=== PATIENT | male | born 1940 | race Hispanic/Latino ===

== ENCOUNTER 2017-07-02 12:24 | Inpatient (IN) | payer MEDICARE ==
--- NOTE | 2017-07-02 13:12 | RAD ---
PROCEDURE: CHEST RADIOGRAPH, 1 VIEW HISTORY: SOB COMPARISON: None available. FINDINGS: LUNGS: Clear. PLEURA: Small right pleural effusion. No definite left pleural effusion. No pneumothorax. CARDIOVASCULAR: Cardiomegaly. Pulmonary vascular congestion. . OSSEOUS STRUCTURES: No significant abnormalities. VISUALIZED UPPER ABDOMEN: Normal. OTHER FINDINGS: None. IMPRESSION: Right pleural effusion. Pulmonary vascular congestion. Cardiomegaly. Possible congestive heart failure. No evidence of pulmonary edema.
[2017-07-02] MEDS ORDERED: Verapamil 2 ML ONE ×2 (13:16→13:50)
[2017-07-02] MEDS ORDERED: Metoprolol 1 mg/ml Inj IVP ONE ×3 (13:16→18:06)
[2017-07-02 13:30] LABS: BASO % 0.5 % (0.0-2.0); EOS % 0.7 % (0.0-4.0); HEMOGLOBIN 13.6 g/dL (12.0-18.0); LYMPH # 0.7 K/uL (1.0-4.3); LYMPH % 10.2 % (20.0-40.0); MEAN CORPUSCULAR HEMOGLOBIN 30.5 pg (27.0-31.0); MEAN CORPUSCULAR HGB CONC 33.5 g/dL (33.0-37.0); MEAN PLATELET VOLUME 9.1 fL (7.2-11.7); MONO # 0.4 K/uL (0.0-0.8); MONO % 5.5 % (0.0-10.0); NEUT # 5.6 K/uL (1.8-7.0); NEUT % 83.1 % (50.0-75.0); NRBC % 0.1 % (0.0-2.0); RBC 4.44 Mil/uL (4.40-5.90); RED CELL DISTRIBUTION WIDTH 14.3 % (11.5-14.5); WHITE BLOOD COUNT 6.7 K/uL (4.8-10.8)
--- NOTE | 2017-07-02 13:51 | C.PDOC ---
History Of Present Illness 76 y/o male presents to the ED complaining of palpitations and weakness for 1 day. Patient also reports feeling short of breath and nauseous. No vomiting or abdominal pain. Time Seen by Provider: 07/02/17 12:39 Chief Complaint (Nursing): Weakness/Neurological Deficit History Per: Patient History/Exam Limitations: no limitations Onset/Duration Of Symptoms: Days Current Symptoms Are (Timing): Still Present Past Medical History Reviewed: Historical Data, Nursing Documentation, Vital Signs Vital Signs: Last Vital Signs Temp 98 F 07/02/17 12:30 Pulse 131 H 07/02/17 12:30 Resp 18 07/02/17 12:50 BP 176/126 H 07/02/17 13:23 Pulse Ox 95 07/02/17 14:26 - Medical History PMH: COPD, Sleep Apnea Other Surgeries: lap band, right hip replacement Family History: States: No Known Family Hx - Social History Hx Tobacco Use: No (former) Hx Alcohol Use: No Hx Substance Use: No - Immunization History Hx Tetanus Toxoid Vaccination: No Hx Influenza Vaccination: No Review Of Systems Except As Marked, All Systems Reviewed And Found Negative. Constitutional: Positive for: Weakness Cardiovascular: Positive for: Palpitations Respiratory: Positive for: Shortness of Breath Gastrointestinal: Positive for: Nausea Physical Exam - Physical Exam Appears: No Acute Distress Skin: Normal Color, Warm, Dry Head: Atraumatic, Normacephalic Eye(s): bilateral: Normal Inspection, PERRL, EOMI Oral Mucosa: Moist Neck: Normal, Supple Chest: Symmetrical Cardiovascular: Other (Tachycardic) Respiratory: Normal Breath Sounds, No Accessory Muscle Use, No Rales, No Rhonchi , No Wheezing, No Other (respiratory distress) Gastrointestinal/Abdominal: Soft, No Tenderness, No Distention Extremity: Normal ROM, No Calf Tenderness, Swelling (2+ bilateral pitting edema) Pulses: Left Dorsalis Pedis: Normal, Right Dorsalis Pedis: Normal Neurological/Psych: Oriented x3, Normal Speech ED Course And Treatment - Laboratory Results Result Diagrams: 07/02/17 13:23 07/02/17 13:23 ECG: Interpreted By Me, Viewed By Me ECG Rhythm: Atrial Flutter (at 131 bpm, normal intervals, nonspecific ST/T wave changes) O2 Sat by Pulse Oximetry: 95 (NC) Pulse Ox Interpretation: Normal - Other Rad CXR X-Ray: Read By Radiologist Interpretation: IMPRESSION: Right pleural effusion. Pulmonary vascular congestion. Cardiomegaly. Possible congestive heart failure. No evidence of pulmonary edema. Medical Decision Making Medical Decision Making: Impression: Atrial Flutter Initial Plan: --EKG --Pro-BNP --CMP --Troponin I --TSH --CBC --Accucheck --UA --Chest x-ray --Cardizem 20 mg IVP --Aspirin 81 mg PO --Lopressor 5 mg IVP --Verapimil 2.5 mg IVP Patient given medications with rate control. Labs reviewed: (+) troponin 0.135, BNP 8060 Case d/w Dr. Ogden (car rental agent) who will see pt on consult. Case d/w Dr. Valentin, accepts patient for admission Disposition Discussed With : Terry Valentin Counseled Patient/Family Regarding: Studies Performed, Diagnosis - Disposition Referrals: Oscar Ogden MD [Staff Provider] - Disposition Time: 13:51 Condition: FAIR Forms: [employer] ([place]) - Clinical Impression Clinical Impression: Atrial flutter - Scribe Statement The provider has reviewed the documentation as recorded by the Scribe (Kendal Guardado) Provider Attestation: All medical record entries made by the Scribe were at my direction and personally dictated by me. I have reviewed the chart and agree that the record accurately reflects my personal performance of the history, physical exam, medical decision making, and the department course for this patient. I have also personally directed, reviewed, and agree with the discharge instructions and disposition.
--- NOTE | 2017-07-02 13:55 | CP.PCM.CON ---
History of Present Illness - History of Present Illness History of Present Illness: Dr. Ogden has asked me to see this patient with atrial flutter Past Patient History - Past Social History Smoking Status: Former Smoker - CARDIAC Hx Angina: Yes - PULMONARY Hx Chronic Obstructive Pulmonary Disease (COPD): Yes Hx Sleep Apnea: Yes - GASTROINTESTINAL Other/Comment: lap band - PSYCHIATRIC Hx Substance Use: No - SURGICAL HISTORY Other/Comment: right leg hip replacement - ANESTHESIA Hx Anesthesia: Yes Hx Anesthesia Reactions: No Hx Malignant Hyperthermia: No Meds Allergies/Adverse Reactions: Allergies Allergy/AdvReac Type Severity Reaction Status Date / Time No Known Allergies Allergy Unverified 07/02/17 12:49 Results - Vital Signs Recent Vital Signs: Last Vital Signs Temp 98 F 07/02/17 12:30 Pulse 131 H 07/02/17 12:30 Resp 18 07/02/17 12:50 BP 176/126 H 07/02/17 13:23 Pulse Ox 95 07/02/17 13:51 - Labs Result Diagrams: 07/02/17 13:23 07/02/17 13:23 Labs: Laboratory Results - last 24 hr 07/02/17 07/02/17 12:51 13:23 WBC 6.7 RBC 4.44 Hgb 13.6 Hct 40.4 MCV 91.0 MCH 30.5 MCHC 33.5 RDW 14.3 Plt Count 211 MPV 9.1 Neut % (Auto) 83.1 H Lymph % (Auto) 10.2 L [place] % (Auto) 5.5 Eos % (Auto) 0.7 Baso % (Auto) 0.5 Neut # (Auto) 5.6 Lymph # (Auto) 0.7 L [place] # (Auto) 0.4 Eos # (Auto) 0.0 Baso # (Auto) 0.0 POC Glucose (mg/dL) 115 H Assessment & Plan - Assessment and Plan (Free Text) Assessment: New atrial flutter. May have been ongoing for the past 2-3 months. Much worse breathing past week. Found to be in rapid atrial flutter with volume overload and LE edema. Start eliquis 5 mg bid Start cardizem 30 mg qiq. Hopeful dc over weekend if rate controlled. Outpatient SUKHWINDER/CV after he has been anticogaulated Patient prefers to avoid invasive procedure at present.
[2017-07-02 13:56] LABS: ALB/GLOB RATIO 1.3 (1.0-2.1); ALBUMIN 3.6 g/dL (3.5-5.0); ALT/SGPT 23 U/L (21-72); AST/SGOT 28 U/L (17-59); BLOOD UREA NITROGEN 25 mg/dL (9-20); CALCIUM 8.5 mg/dl (8.6-10.4); GFR AFRICAN-AMERICAN > 60; GFR NON-AFRICAN AMERICAN 54
[2017-07-02 14:03] LABS: B-TYPE NATRIURETIC PEPTIDE 8060 pg/mL (0-900)
[2017-07-02] MEDS ORDERED: Potassium Chloride 20 mEq/15 ml LIQ UD PO STA (16:04)
[2017-07-02] MEDS ORDERED: Potassium Chloride 20 mEq/15 ml LIQ UD PO ONE (17:57)
[2017-07-02 20:56] LABS: CK-MB 2.53 ng/mL (0.0-3.38); TROPONIN I 0.173 ng/mL (0.00-0.120)
[2017-07-03 02:26] LABS: CK-MB 2.55 ng/mL (0.0-3.38); TROPONIN I 0.174 ng/mL (0.00-0.120)
--- NOTE | 2017-07-03 08:57 | CP.PCM.CON ---
History of Present Illness - History of Present Illness History of Present Illness: Patient seen examined. full consult to follow. Patient has a history of HTN who presents with palpitations. Patient was found to be in atrial fibrillation with rapid ventricular response. Patient was seen by Dr Nova for EP consultation. Plan: echocardiogram increase cardizem for rate control Eliquis If rate can be controlled can d/c home and will schedule outpatient SUKHWINDER/ cardioversion with possible ablation. Dishcarge will depend on patinet's symptoms and hear rate control. Past Patient History - Past Social History Smoking Status: Former Smoker - CARDIAC Hx Angina: Yes - PULMONARY Hx Chronic Obstructive Pulmonary Disease (COPD): Yes Hx Sleep Apnea: Yes - GASTROINTESTINAL Other/Comment: lap band - PSYCHIATRIC Hx Substance Use: No - SURGICAL HISTORY Other/Comment: right leg hip replacement - ANESTHESIA Hx Anesthesia: Yes Hx Anesthesia Reactions: No Hx Malignant Hyperthermia: No Meds Allergies/Adverse Reactions: Allergies Allergy/AdvReac Type Severity Reaction Status Date / Time No Known Allergies Allergy Unverified 07/02/17 12:49 - Medications Medications: Current Medications Apixaban (Eliquis) 5 mg PO BID [facility] Aspirin (Ecotrin) 81 mg PO DAILY [facility] Diltiazem HCl (Cardizem) 60 mg PO QID [facility] Enoxaparin Sodium (Lovenox) 40 mg SC DAILY [facility] Metoprolol Succinate (Toprol Xl) 50 mg PO DAILY [facility] Rosuvastatin Calcium (Crestor) 10 mg PO HS [facility] Last Admin: 07/02/17 22:29 Dose: 10 mg Results - Vital Signs Recent Vital Signs: Last Vital Signs Temp 97.3 F L 07/03/17 07:05 Pulse 127 H 07/03/17 07:05 Resp 18 07/03/17 07:05 BP 147/88 07/03/17 07:05 Pulse Ox 96 07/03/17 07:05 - Labs Result Diagrams: 07/02/17 13:23 07/02/17 13:23 Labs: Laboratory Results - last 24 hr 07/02/17 07/02/17 07/02/17 12:51 13:23 13:23 WBC 6.7 RBC 4.44 Hgb 13.6 Hct 40.4 MCV 91.0 MCH 30.5 MCHC 33.5 RDW 14.3 Plt Count 211 MPV 9.1 Neut % (Auto) 83.1 H Lymph % (Auto) 10.2 L [place] % (Auto) 5.5 Eos % (Auto) 0.7 Baso % (Auto) 0.5 Neut # (Auto) 5.6 Lymph # (Auto) 0.7 L [place] # (Auto) 0.4 Eos # (Auto) 0.0 Baso # (Auto) 0.0 Sodium 145 Potassium 3.5 L Chloride 105 Carbon Dioxide 26 Anion Gap 18 BUN 25 H Creatinine 1.3 Est GFR ( Amer) > 60 Est GFR (Non-Af Amer) 54 POC Glucose (mg/dL) 115 H Random Glucose 124 H Calcium 8.5 L Total Bilirubin 1.4 H AST 28 ALT 23 Alkaline Phosphatase 52 Total Creatine Kinase CK-MB (Mass) Troponin I 0.1350 H* NT-Pro-B Natriuret Pep 8060 H Total Protein 6.5 Albumin 3.6 Globulin 2.9 Albumin/Globulin Ratio 1.3 TSH 3rd Generation 2.29 07/02/17 07/03/17 20:00 01:36 WBC RBC Hgb Hct MCV MCH MCHC RDW Plt Count MPV Neut % (Auto) Lymph % (Auto) [place] % (Auto) Eos % (Auto) Baso % (Auto) Neut # (Auto) Lymph # (Auto) [place] # (Auto) Eos # (Auto) Baso # (Auto) Sodium Potassium Chloride Carbon Dioxide Anion Gap BUN Creatinine Est GFR ( Amer) Est GFR (Non-Af Amer) POC Glucose (mg/dL) Random Glucose Calcium Total Bilirubin AST ALT Alkaline Phosphatase Total Creatine Kinase 93 106 CK-MB (Mass) 2.53 2.55 Troponin I 0.1730 H* 0.1740 H* NT-Pro-B Natriuret Pep Total Protein Albumin Globulin Albumin/Globulin Ratio TSH 3rd Generation
[2017-07-03] MEDS: Metoprolol Succinate 50 mg XL Tab PO SCH (09:17)
--- NOTE | 2017-07-03 09:34 | CP.PCM.HP ---
History of Present Illness - History of Present Illness History of Present Illness: CC: weakness, shortness of breath HPI: Pt is a 76 year old male present with severe weakness, shortness of breath since wednesday,Patient has a history of HTN, gastric bypass surgery, who presents with palpitations. Patient was found to be in atrial fibrillation with rapid ventricular response. Patient was seen by Dr Nova for EP consultation. Present on Admission - Present on Admission Any Indicators Present on Admission: Yes Review of Systems - Review of Systems Systems not reviewed;Unavailable: Acuity of Condition - Constitutional Constitutional: Fatigue, Lethargy, Malaise - EENT Eyes: absent: As Per HPI, Blind Spots, Blurred Vision, Change in Vision, Decreased Night Vision, Diplopia, Discharge, Dry Eye, Exophthalmos, Floaters, Irritation, Itchy Eyes, Loss of Peripheral Vision, Pain, Photophobia, Requires Corrective Lenses, Sees Flashes, Spots in Vision, Tunnel Vision, Other Visual Disturbances, Loss of Vision, Other Ears: absent: As Per HPI, Decreased Hearing, Ear Discharge, Ear Pain, Tinnitus, Abnormal Hearing, Disequilibrium, Dizziness, Other Nose/Mouth/Throat: absent: As Per HPI, Epistaxis, Nasal Congestion, Nasal Discharge, Nasal Obstruction, Nasal Trauma, Nose Pain, Post Nasal Drip, Sinus Pain, Sinus Pressure, Bleeding Gums, Change in Voice, Dental Pain, Dry Mouth, Dysphagia, Halitosis, Hoarsness, Lip Swelling, Mouth Lesions, Mouth Pain, Odynophagia, Sore Throat, Throat Swelling, Tongue Swelling, Facial Pain, Neck Pain, Neck Mass, Other - Cardiovascular Cardiovascular: Chest Pain, Leg Edema - Respiratory Respiratory: Dyspnea. absent: As Per HPI, Cough, Hemoptysis, Dyspnea on Exertion, Wheezing, Snoring, Stridor, Pain on Inspiration, Chest Congestion, Excessive Mucous Production, Change in Mucous Color, Pain with Coughing, Other - Gastrointestinal Gastrointestinal: absent: As Per HPI, Abdominal Pain, Belching, Bloating, Change in Bowel Habits, Change in Stool Character, Coffee Ground Emesis, Constipation, Cramping, Diarrhea, Dyspepsia, Dysphagia, Early Satiety, Excessive Flatus, Fecal Incontinence, Heartburn, Hematemesis, Hematochezia, Loose Stools, Melena, Nausea, Odynophagia, Temesmus, Vomiting, Other - Genitourinary Genitourinary: absent: As Per HPI, Change in Urinary Stream, Difficulty Urinating, Dysuria, Flank Pain, Hematuria, Pyuria, Nocturia, Urinary Incontinence, Urinary Frequency, Urinary Hesitance, Urinary Urgency, Voiding Freq/Small Amts, Freq UTI, Hx Renal/Bladder Calculi, Hx /Renal Surgery, Bladder Distension, Other Past Patient History - Past Social History Smoking Status: Former Smoker - CARDIAC Hx Angina: Yes - PULMONARY Hx Chronic Obstructive Pulmonary Disease (COPD): Yes Hx Sleep Apnea: Yes - GASTROINTESTINAL Other/Comment: lap band - PSYCHIATRIC Hx Substance Use: No - SURGICAL HISTORY Other/Comment: right leg hip replacement - ANESTHESIA Hx Anesthesia: Yes Hx Anesthesia Reactions: No Hx Malignant Hyperthermia: No Meds Allergies/Adverse Reactions: Allergies Allergy/AdvReac Type Severity Reaction Status Date / Time No Known Allergies Allergy Unverified 07/02/17 12:49 Physical Exam - Constitutional Appears: No Acute Distress - Head Exam Head Exam: ATRAUMATIC, NORMAL INSPECTION, NORMOCEPHALIC - Eye Exam Eye Exam: EOMI, Normal appearance, PERRL Pupil Exam: NORMAL ACCOMODATION, PERRL - ENT Exam ENT Exam: Mucous Membranes Moist, Normal Exam - Respiratory Exam Respiratory Exam: Clear to Auscultation Bilateral, NORMAL BREATHING PATTERN - Cardiovascular Exam Cardiovascular Exam: REGULAR RHYTHM - GI/Abdominal Exam GI & Abdominal Exam: Normal Bowel Sounds, Soft. absent: Tenderness - Extremities Exam Extremities exam: Positive for: pedal edema - Back Exam Back exam: NORMAL INSPECTION Results - Vital Signs Recent Vital Signs: Last Vital Signs Temp 97.3 F L 07/03/17 07:05 Pulse 127 H 07/03/17 07:05 Resp 18 07/03/17 07:05 BP 147/88 07/03/17 07:05 Pulse Ox 96 07/03/17 07:05 - Labs Result Diagrams: 07/02/17 13:23 07/02/17 13:23 Labs: Laboratory Results - last 24 hr 07/02/17 07/02/17 07/02/17 12:51 13:23 13:23 WBC 6.7 RBC 4.44 Hgb 13.6 Hct 40.4 MCV 91.0 MCH 30.5 MCHC 33.5 RDW 14.3 Plt Count 211 MPV 9.1 Neut % (Auto) 83.1 H Lymph % (Auto) 10.2 L [place] % (Auto) 5.5 Eos % (Auto) 0.7 Baso % (Auto) 0.5 Neut # (Auto) 5.6 Lymph # (Auto) 0.7 L [place] # (Auto) 0.4 Eos # (Auto) 0.0 Baso # (Auto) 0.0 Sodium 145 Potassium 3.5 L Chloride 105 Carbon Dioxide 26 Anion Gap 18 BUN 25 H Creatinine 1.3 Est GFR ( Amer) > 60 Est GFR (Non-Af Amer) 54 POC Glucose (mg/dL) 115 H Random Glucose 124 H Calcium 8.5 L Total Bilirubin 1.4 H AST 28 ALT 23 Alkaline Phosphatase 52 Total Creatine Kinase CK-MB (Mass) Troponin I 0.1350 H* NT-Pro-B Natriuret Pep 8060 H Total Protein 6.5 Albumin 3.6 Globulin 2.9 Albumin/Globulin Ratio 1.3 TSH 3rd Generation 2.29 07/02/17 07/03/17 20:00 01:36 WBC RBC Hgb Hct MCV MCH MCHC RDW Plt Count MPV Neut % (Auto) Lymph % (Auto) [place] % (Auto) Eos % (Auto) Baso % (Auto) Neut # (Auto) Lymph # (Auto) [place] # (Auto) Eos # (Auto) Baso # (Auto) Sodium Potassium Chloride Carbon Dioxide Anion Gap BUN Creatinine Est GFR ( Amer) Est GFR (Non-Af Amer) POC Glucose (mg/dL) Random Glucose Calcium Total Bilirubin AST ALT Alkaline Phosphatase Total Creatine Kinase 93 106 CK-MB (Mass) 2.53 2.55 Troponin I 0.1730 H* 0.1740 H* NT-Pro-B Natriuret Pep Total Protein Albumin Globulin Albumin/Globulin Ratio TSH 3rd Generation Assessment & Plan (1) Chest pain Assessment and Plan: Plan: echocardiogram increase cardizem for rate control Eliquis If rate can be controlled can d/c home and will schedule outpatient SUKHWINDER/ cardioversion with possible ablation. Dishcarge will depend on patinet's symptoms and hear rate control. Status: Acute (2) Venous insufficiency of both lower extremities Status: Acute (3) Atrial flutter Status: Acute
--- NOTE | 2017-07-03 09:49 | CP.PCM.PN ---
Objective - Vital Signs/Intake and Output Vital Signs (last 24 hours): Temp Pulse Resp BP Pulse Ox 97.3 F L 127 H 18 147/88 96 07/03/17 07:05 07/03/17 07:05 07/03/17 07:05 07/03/17 07:05 07/03/17 07:05 Intake and Output: 07/03/17 07/03/17 06:59 18:59 Intake Total 358 Balance 358 - Medications Medications: Current Medications Apixaban (Eliquis) 5 mg PO BID [facility] Last Admin: 07/03/17 09:40 Dose: 5 mg Aspirin (Ecotrin) 81 mg PO DAILY [facility] Last Admin: 07/03/17 09:17 Dose: 81 mg Diltiazem HCl (Cardizem) 60 mg PO QID [facility] Last Admin: 07/03/17 09:17 Dose: 60 mg Metoprolol Succinate (Toprol Xl) 50 mg PO DAILY [facility] Last Admin: 07/03/17 09:17 Dose: 50 mg Rosuvastatin Calcium (Crestor) 10 mg PO [facility] Last Admin: 07/02/17 22:29 Dose: 10 mg - Labs Labs: 07/02/17 13:23 07/02/17 13:23 Assessment and Plan (1) Chest pain Status: Acute (2) Venous insufficiency of both lower extremities Status: Acute (3) Atrial flutter Status: Acute
[2017-07-03] MEDS ORDERED: Metoprolol Succinate 50 mg XL Tab PO SCH (10:00)
[2017-07-03] MEDS ORDERED: Enoxaparin 40 mg Syringe SC SCH (10:00)
[2017-07-03] MEDS ORDERED: Home Med 1 UNIT (Simvastatin [Simvastatin] 20 MG) PO SCH (10:00)
[2017-07-03 17:11] LABS: CALCIUM 8.3 mg/dl (8.6-10.4)
--- NOTE | 2017-07-03 19:52 | CARD ---
APPROVED REPORT EXAM: Two-dimensional and M-mode echocardiogram with Doppler and color Doppler. Other Information Quality : Technically LimitedRhythm : INDICATION Atrial Fibrillation Chest Pain RISK FACTORS Obesity 2D DIMENSIONS IVSd1.3 (0.7-1.1cm)LVDd5.7 (3.9-5.9cm) LVOT Diameter2.1 (1.8-2.4cm)PWd1.4 (0.7-1.1cm) LVDs4.5 (2.5-4.0cm)FS (%) 21.0 % LVEF (%)42.0 (>50%) Aortic Valve AoV Peak Psevxxje543.6cm/sAoV VTI30.9cmAO Peak GR.17mmHg LVOT Peak Odzixymy83.0cm/sLVOT VTI17.00cmAO Mean GR.9mmHg FILOMENA (VMAX)1.75qb9UKV (VTI)1.82cm2 Mitral Valve MV E Vaznnijk854.2cm/sMV A Yhvonuym98.0cm/sE/A ratio3.8 TDI E/Lateral E'0.0E/Medial E'0.0 Tricuspid Valve TR Peak Tzlstsrl821qa/sTR Peak Gr.40owJpMJDF98wiJp LEFT VENTRICLE The left ventricle is normal size. There is normal left ventricular wall thickness. The systolic function is mildly to moderately impaired. The left ventricular diastolic function is normal. RIGHT VENTRICLE The right ventricle is normal size. ATRIA The left atrium is moderately dilated. The right atrium size is normal. AORTIC VALVE There is mild aortic regurgitation. There is mild valvular aortic stenosis. MITRAL VALVE Mitral regurgitation is mild. TRICUSPID VALVE There is moderate tricuspid regurgitation. <Conclusion> Technically difficult study. Mild to moderate LV systolic dysfunction. Moderately dilated LA. Mild . Mild AR. Mild MR. Moderate TR.
--- NOTE | 2017-07-03 20:26 | CARD ---
APPROVED REPORT EKG Measurement Heart [id number] <Conclusion> Atrial flutter with 2:1 AV conduction Voltage criteria for left ventricular hypertrophy Nonspecific ST and T wave abnormality Abnormal ECG
[2017-07-04] MEDS: Metoprolol Succinate 50 mg XL Tab PO SCH (09:13)
--- NOTE | 2017-07-04 10:10 | CP.PCM.PN ---
Subjective - Date & Time of Evaluation Date of Evaluation: 07/04/17 Time of Evaluation: 09:40 - Subjective Subjective: patient has less dyspnea. Objective - Vital Signs/Intake and Output Vital Signs (last 24 hours): Temp Pulse Resp BP Pulse Ox 97.9 F 108 H 20 123/72 98 07/04/17 09:26 07/04/17 09:26 07/04/17 09:26 07/04/17 09:26 07/04/17 09:26 Intake and Output: 07/04/17 07/04/17 06:59 18:59 Intake Total 250 Balance 250 - Medications Medications: Current Medications Apixaban (Eliquis) 5 mg PO BID [facility] Last Admin: 07/04/17 09:14 Dose: 5 mg Aspirin (Ecotrin) 81 mg PO DAILY [facility] Last Admin: 07/04/17 09:14 Dose: 81 mg Diltiazem HCl (Cardizem) 60 mg PO QID [facility] Last Admin: 07/04/17 09:14 Dose: 60 mg Hydrochlorothiazide (Microzide) 12.5 mg PO DAILY [facility] Last Admin: 07/04/17 09:13 Dose: 12.5 mg Metoprolol Succinate (Toprol Xl) 50 mg PO DAILY [facility] Last Admin: 07/04/17 09:13 Dose: 50 mg Rosuvastatin Calcium (Crestor) 10 mg PO HS [facility] Last Admin: 07/03/17 21:25 Dose: 10 mg - Labs Labs: 07/02/17 13:23 07/03/17 16:52 - Constitutional Appears: Non-toxic - Head Exam Head Exam: NORMAL INSPECTION - Eye Exam Eye Exam: Normal appearance - ENT Exam ENT Exam: Mucous Membranes Moist - Neck Exam Neck Exam: Full ROM - Respiratory Exam Respiratory Exam: Decreased Breath Sounds - Cardiovascular Exam Cardiovascular Exam: Irregular Rhythm - GI/Abdominal Exam GI & Abdominal Exam: Normal Bowel Sounds - Rectal Exam Rectal Exam: Deferred - Extremities Exam Extremities Exam: absent: Pedal Edema - Back Exam Back Exam: NORMAL INSPECTION - Neurological Exam Neurological Exam: Alert - Psychiatric Exam Psychiatric exam: Normal Affect - Skin Skin Exam: Normal Color Assessment and Plan (1) Atrial fibrillation Assessment & Plan: I reviewed the echocardiogram. There is moderate LV dysfunction, with mild hypokinesis of the anterior wall. The LA appears dilated. The patient may have underlying CAD. Recommend nuclear perfusion stress test. Status: Acute
--- NOTE | 2017-07-05 00:58 | CP.PCM.PN ---
Subjective - Date & Time of Evaluation Date of Evaluation: 07/04/17 Time of Evaluation: 20:00 - Subjective Subjective: Pt seen and examined at bedside Objective - Vital Signs/Intake and Output Vital Signs (last 24 hours): Temp Pulse Resp BP Pulse Ox 97.1 F L 64 20 127/85 94 L 07/04/17 15:28 07/05/17 00:00 07/04/17 15:28 07/04/17 15:28 07/04/17 15:28 Intake and Output: 07/04/17 07/05/17 18:59 06:59 Intake Total 360 Balance 360 - Medications Medications: Current Medications Apixaban (Eliquis) 5 mg PO BID [facility] Last Admin: 07/04/17 17:38 Dose: 5 mg Aspirin (Ecotrin) 81 mg PO DAILY [facility] Last Admin: 07/04/17 09:14 Dose: 81 mg Diltiazem HCl (Cardizem) 60 mg PO QID [facility] Last Admin: 07/04/17 22:02 Dose: 60 mg Hydrochlorothiazide (Microzide) 12.5 mg PO DAILY [facility] Last Admin: 07/04/17 09:13 Dose: 12.5 mg Metoprolol Succinate (Toprol Xl) 50 mg PO DAILY [facility] Last Admin: 07/04/17 09:13 Dose: 50 mg Rosuvastatin Calcium (Crestor) 10 mg PO HS [facility] Last Admin: 07/04/17 22:02 Dose: 10 mg - Labs Labs: 07/02/17 13:23 07/03/17 16:52 Assessment and Plan (1) Chest pain Status: Acute (2) Venous insufficiency of both lower extremities Status: Acute (3) Atrial flutter Status: Acute
--- NOTE | 2017-07-05 08:17 | CP.PCM.PN ---
Subjective - Date & Time of Evaluation Date of Evaluation: 07/05/17 Time of Evaluation: 08:00 - Subjective Subjective: patient is s/p stress test. await nuclear images Objective - Vital Signs/Intake and Output Vital Signs (last 24 hours): Temp Pulse Resp BP Pulse Ox 97.2 F L 64 20 118/77 95 07/04/17 23:50 07/05/17 00:00 07/04/17 23:50 07/04/17 23:50 07/04/17 23:50 Intake and Output: 07/05/17 07/05/17 06:59 18:59 Intake Total 0 Balance 0 - Medications Medications: Current Medications Apixaban (Eliquis) 5 mg PO BID [facility] Last Admin: 07/04/17 17:38 Dose: 5 mg Aspirin (Ecotrin) 81 mg PO DAILY [facility] Last Admin: 07/04/17 09:14 Dose: 81 mg Diltiazem HCl (Cardizem) 60 mg PO QID [facility] Last Admin: 07/04/17 22:02 Dose: 60 mg Hydrochlorothiazide (Microzide) 12.5 mg PO DAILY [facility] Last Admin: 07/04/17 09:13 Dose: 12.5 mg Metoprolol Succinate (Toprol Xl) 50 mg PO DAILY [facility] Last Admin: 07/04/17 09:13 Dose: 50 mg Rosuvastatin Calcium (Crestor) 10 mg PO HS [facility] Last Admin: 07/04/17 22:02 Dose: 10 mg - Labs Labs: 07/02/17 13:23 07/03/17 16:52 Assessment and Plan (1) Atrial fibrillation Status: Acute
[2017-07-05] MEDS: Metoprolol Succinate 50 mg XL Tab PO SCH (09:59)
[2017-07-05 16:13] VITALS: RESP 20
[2017-07-05 18:22] LABS: URINE BACTERIA RARE (<OCC); URINE BILIRUBIN NEGATIVE (NEGATIVE); URINE BLOOD 1+ (NEGATIVE); URINE CLARITY Clear (Clear); URINE COLOR Yellow (YELLOW); URINE GLUCOSE (UA) NORMAL (Normal); URINE LEUKOCYTE ESTERASE NEG Leu/uL (Negative); URINE PROTEIN NEGATIVE (NEGATIVE)
--- NOTE | 2017-07-05 23:30 | CP.PCM.PN ---
Subjective - Date & Time of Evaluation Date of Evaluation: 07/05/17 Time of Evaluation: 20:00 - Subjective Subjective: Pt seen and examined at bedside Objective - Vital Signs/Intake and Output Vital Signs (last 24 hours): Temp Pulse Resp BP Pulse Ox 98.3 F 75 20 140/82 95 07/05/17 15:00 07/05/17 16:05 07/05/17 15:00 07/05/17 15:00 07/05/17 15:00 - Medications Medications: Current Medications Apixaban (Eliquis) 5 mg PO BID [facility] Last Admin: 07/05/17 17:40 Dose: 5 mg Aspirin (Ecotrin) 81 mg PO DAILY [facility] Last Admin: 07/05/17 09:59 Dose: 81 mg Diltiazem HCl (Cardizem) 60 mg PO QID [facility] Last Admin: 07/05/17 21:21 Dose: 60 mg Hydrochlorothiazide (Microzide) 12.5 mg PO DAILY [facility] Last Admin: 07/05/17 09:59 Dose: 12.5 mg Metoprolol Succinate (Toprol Xl) 50 mg PO DAILY [facility] Last Admin: 07/05/17 09:59 Dose: 50 mg Rosuvastatin Calcium (Crestor) 10 mg PO HS [facility] Last Admin: 07/05/17 21:21 Dose: 10 mg - Labs Labs: 07/02/17 13:23 07/03/17 16:52 Assessment and Plan (1) Chest pain Status: Acute (2) Venous insufficiency of both lower extremities Status: Acute (3) Atrial flutter Status: Acute
[2017-07-06] MEDS: Metoprolol Succinate 50 mg XL Tab PO SCH (09:41)
--- NOTE | 2017-07-06 09:54 | CP.PCM.PN ---
Subjective - Date & Time of Evaluation Date of Evaluation: 07/06/17 Time of Evaluation: 09:50 - Subjective Subjective: patient has no chest pain. Objective - Vital Signs/Intake and Output Vital Signs (last 24 hours): Temp Pulse Resp BP Pulse Ox 97.6 F 86 20 157/90 H 98 07/06/17 08:20 07/06/17 08:20 07/06/17 08:20 07/06/17 08:20 07/06/17 08:20 - Medications Medications: Current Medications Apixaban (Eliquis) 5 mg PO BID [facility] Last Admin: 07/06/17 09:40 Dose: 5 mg Aspirin (Ecotrin) 81 mg PO DAILY [facility] Last Admin: 07/06/17 09:41 Dose: 81 mg Diltiazem HCl (Cardizem) 60 mg PO QID [facility] Last Admin: 07/06/17 09:41 Dose: 60 mg Hydrochlorothiazide (Microzide) 12.5 mg PO DAILY [facility] Last Admin: 07/06/17 09:41 Dose: 12.5 mg Metoprolol Succinate (Toprol Xl) 50 mg PO DAILY [facility] Last Admin: 07/06/17 09:41 Dose: 50 mg Rosuvastatin Calcium (Crestor) 10 mg PO HS [facility] Last Admin: 07/05/17 21:21 Dose: 10 mg - Labs Labs: 07/02/17 13:23 07/03/17 16:52 - Constitutional Appears: Non-toxic - Head Exam Head Exam: NORMAL INSPECTION - Eye Exam Eye Exam: Normal appearance - ENT Exam ENT Exam: Mucous Membranes Moist - Neck Exam Neck Exam: Full ROM - Respiratory Exam Respiratory Exam: NORMAL BREATHING PATTERN - Cardiovascular Exam Cardiovascular Exam: Irregular Rhythm - GI/Abdominal Exam GI & Abdominal Exam: Normal Bowel Sounds - Extremities Exam Extremities Exam: absent: Pedal Edema - Back Exam Back Exam: NORMAL INSPECTION - Neurological Exam Neurological Exam: Alert - Psychiatric Exam Psychiatric exam: Normal Affect - Skin Skin Exam: Normal Color Assessment and Plan (1) Atrial fibrillation Assessment & Plan: rate controlled. stress test reveals no ischemia. recommend continued oral therapy. can d/c home and will schedule outpatient [facility]/cardioversion Status: Acute
--- NOTE | 2017-07-06 16:37 | CP.PCM.PN ---
Subjective - Date & Time of Evaluation Date of Evaluation: 07/06/17 Time of Evaluation: 17:00 - Subjective Subjective: Pt seen and examined, afebrile, more alert, malcom any chest pain Objective - Vital Signs/Intake and Output Vital Signs (last 24 hours): Temp Pulse Resp BP Pulse Ox 98 F 65 20 123/66 98 07/06/17 15:57 07/06/17 15:57 07/06/17 15:57 07/06/17 15:57 07/06/17 15:57 Intake and Output: 07/06/17 07/06/17 06:59 18:59 Intake Total 600 Balance 600 - Medications Medications: Current Medications Apixaban (Eliquis) 5 mg PO BID [facility] Last Admin: 07/06/17 09:40 Dose: 5 mg Aspirin (Ecotrin) 81 mg PO DAILY [facility] Last Admin: 07/06/17 09:41 Dose: 81 mg Diltiazem HCl (Cardizem) 60 mg PO QID [facility] Last Admin: 07/06/17 13:17 Dose: 60 mg Hydrochlorothiazide (Microzide) 12.5 mg PO DAILY [facility] Last Admin: 07/06/17 09:41 Dose: 12.5 mg Metoprolol Succinate (Toprol Xl) 50 mg PO DAILY [facility] Last Admin: 07/06/17 09:41 Dose: 50 mg Rosuvastatin Calcium (Crestor) 10 mg PO HS [facility] Last Admin: 07/05/17 21:21 Dose: 10 mg - Labs Labs: 07/02/17 13:23 07/03/17 16:52 Assessment and Plan (1) Chest pain Status: Acute (2) Venous insufficiency of both lower extremities Status: Acute (3) Atrial flutter Status: Acute
[2017-07-07 00:39] VITALS: TEMP 97.5
[2017-07-07 07:55] VITALS: O2SAT 98
[2017-07-07] MEDS: Metoprolol Succinate 50 mg XL Tab PO SCH (09:48)
--- NOTE | 2017-07-07 11:44 | CP.PCM.PN ---
Subjective - Date & Time of Evaluation Date of Evaluation: 07/07/17 Time of Evaluation: 11:00 - Subjective Subjective: Patient seen today, denies any chest pain, sob, dizziness, palpitations HR controlled- Objective - Vital Signs/Intake and Output Vital Signs (last 24 hours): Temp Pulse Resp BP Pulse Ox 97.5 F L 88 20 157/94 H 98 07/07/17 07:00 07/07/17 08:00 07/07/17 07:00 07/07/17 07:00 07/07/17 07:00 Intake and Output: 07/07/17 07/07/17 06:59 18:59 Intake Total 200 Balance 200 - Medications Medications: Current Medications Apixaban (Eliquis) 5 mg PO BID [facility] Last Admin: 07/07/17 09:48 Dose: 5 mg Aspirin (Ecotrin) 81 mg PO DAILY [facility] Last Admin: 07/07/17 09:48 Dose: 81 mg Diltiazem HCl (Cardizem) 60 mg PO QID [facility] Last Admin: 07/07/17 09:48 Dose: 60 mg Hydrochlorothiazide (Microzide) 12.5 mg PO DAILY [facility] Last Admin: 07/07/17 09:48 Dose: 12.5 mg Metoprolol Succinate (Toprol Xl) 50 mg PO DAILY [facility] Last Admin: 07/07/17 09:48 Dose: 50 mg Rosuvastatin Calcium (Crestor) 10 mg PO HS [facility] Last Admin: 07/06/17 21:18 Dose: 10 mg - Labs Labs: 07/02/17 13:23 07/03/17 16:52 Assessment and Plan - Assessment and Plan (Free Text) Assessment: A/P 76 yr old male with hx COPD, Sleep Apnea admitted with palpitations and weakness / atrial flutter s/p stress test - reveals no ischemia. D/W Dr. Lopes recommends to continue oral therapy, can be discharged home from cardiology standpoint f/u with Dr. Lopes office D/w Barbie, stable for discharge home today and f/u with office in 1 week Discharge plan discussed with patient who understands and agrees with plan
[2017-07-07 13:04] VITALS: BP 110/71; PULSE 88
--- NOTE | 2017-07-07 22:33 | CP.PCM.DIS ---
Provider - Provider Date of Admission: 07/03/17 15:55 Attending physician: Terry Valentin MD Time Spent in preparation of Discharge (in minutes): 34 Diagnosis - Discharge Diagnosis (1) Chest pain Status: Acute (2) Venous insufficiency of both lower extremities Status: Acute (3) Atrial flutter Status: Acute Hospital Course - Lab Results Lab Results: Most Recent Lab Values WBC 6.7 K/uL (4.8-10.8) 07/02/17 13:23 RBC 4.44 Mil/uL (4.40-5.90) 07/02/17 13:23 Hgb 13.6 g/dL (12.0-18.0) 07/02/17 13:23 Hct 40.4 % (35.0-51.0) 07/02/17 13:23 MCV 91.0 fL (80.0-94.0) 07/02/17 13:23 MCH 30.5 pg (27.0-31.0) 07/02/17 13:23 MCHC 33.5 g/dL (33.0-37.0) 07/02/17 13:23 RDW 14.3 % (11.5-14.5) 07/02/17 13:23 Plt Count 211 K/uL (130-400) 07/02/17 13:23 MPV 9.1 fL (7.2-11.7) 07/02/17 13:23 Neut % (Auto) 83.1 % (50.0-75.0) H 07/02/17 13:23 Lymph % (Auto) 10.2 % (20.0-40.0) L 07/02/17 13:23 [place] % (Auto) 5.5 % (0.0-10.0) 07/02/17 13:23 Eos % (Auto) 0.7 % (0.0-4.0) 07/02/17 13:23 Baso % (Auto) 0.5 % (0.0-2.0) 07/02/17 13:23 Neut # (Auto) 5.6 K/uL (1.8-7.0) 07/02/17 13:23 Lymph # (Auto) 0.7 K/uL (1.0-4.3) L 07/02/17 13:23 [place] # (Auto) 0.4 K/uL (0.0-0.8) 07/02/17 13:23 Eos # (Auto) 0.0 K/uL (0.0-0.7) 07/02/17 13:23 Baso # (Auto) 0.0 K/uL (0.0-0.2) 07/02/17 13:23 Sodium 144 mmol/L (132-148) 07/03/17 16:52 Potassium 4.5 mmol/L (3.6-5.2) 07/03/17 16:52 Chloride 104 mmol/L (98-107) 07/03/17 16:52 Carbon Dioxide 27 mmol/L (22-30) 07/03/17 16:52 Anion Gap 18 (10-20) 07/03/17 16:52 BUN 36 mg/dL (9-20) H 07/03/17 16:52 Creatinine 1.5 mg/dL (0.8-1.5) 07/03/17 16:52 Est GFR ( Amer) 55 07/03/17 16:52 Est GFR (Non-Af Amer) 46 07/03/17 16:52 POC Glucose (mg/dL) 115 mg/dL (65-110) H 07/02/17 12:51 Random Glucose 117 mg/dL (75-110) H 07/03/17 16:52 Calcium 8.3 mg/dl (8.6-10.4) L 07/03/17 16:52 Magnesium 2.2 mg/dL (1.6-2.3) 07/03/17 16:52 Total Bilirubin 1.4 mg/dL (0.2-1.3) H 07/02/17 13:23 AST 28 U/L (17-59) 07/02/17 13:23 ALT 23 U/L (21-72) 07/02/17 13:23 Alkaline Phosphatase 52 U/L (38-126) 07/02/17 13:23 Total Creatine Kinase 106 U/L (55-170) 07/03/17 01:36 CK-MB (Mass) 2.55 ng/mL (0.0-3.38) 07/03/17 01:36 Troponin I 0.1740 ng/mL (0.00-0.120) H* 07/03/17 01:36 NT-Pro-B Natriuret Pep 8060 pg/mL (0-900) H 07/02/17 13:23 Total Protein 6.5 g/dL (6.3-8.3) 07/02/17 13:23 Albumin 3.6 g/dL (3.5-5.0) 07/02/17 13:23 Globulin 2.9 gm/dL (2.2-3.9) 07/02/17 13:23 Albumin/Globulin Ratio 1.3 (1.0-2.1) 07/02/17 13:23 TSH 3rd Generation 2.29 mIU/L (0.46-4.68) 07/02/17 13:23 Urine Color Yellow (YELLOW) 07/05/17 18:09 Urine Clarity Clear (Clear) 07/05/17 18:09 Urine pH 5.0 (5.0-8.0) 07/05/17 18:09 Ur Specific [place] 1.023 (1.003-1.030) 07/05/17 18:09 Urine Protein Negative mg/dL (NEGATIVE) 07/05/17 18:09 Urine Glucose (UA) Normal mg/dL (Normal) 07/05/17 18:09 Urine Ketones Negative mg/dL (NEGATIVE) 07/05/17 18:09 Urine Blood 1+ (NEGATIVE) H 07/05/17 18:09 Urine Nitrate Negative (NEGATIVE) 07/05/17 18:09 Urine Bilirubin Negative (NEGATIVE) 07/05/17 18:09 Urine Urobilinogen 2.0 mg/dL (0.2-1.0) 07/05/17 18:09 Ur Leukocyte Esterase Neg [place]/uL (Negative) 07/05/17 18:09 Urine WBC (Auto) 4 /hpf (0-5) 07/05/17 18:09 Urine RBC (Auto) 10 /hpf (0-3) H 07/05/17 18:09 Urine Bacteria Rare (<OCC) 07/05/17 18:09 - Hospital Course Hospital Course: A/P 76 yr old male with hx COPD, Sleep Apnea admitted with palpitations and weakness / atrial flutter s/p stress test - reveals no ischemia. D/W Dr. Lopes recommends to continue oral therapy, can be discharged home from cardiology standpoint f/u with Dr. Lopes office Pt is stable for discharge home today and f/u with me in office in 1 week Discharge plan discussed with patient who understands and agrees with plan Discharge Exam - Head Exam Head Exam: NORMAL INSPECTION Discharge Plan - Discharge Medications Prescriptions: diltiaZEM [Cardizem] 60 mg PO QID #120 tab Apixaban [Eliquis] 5 mg PO BID #60 tab hydroCHLOROthiazide [Microzide] 12.5 mg PO DAILY #30 cap Simvastatin 20 mg PO DAILY #30 tablet Metoprolol Succinate [Toprol XL] 50 mg PO DAILY #30 tab - Follow Up Plan Condition: FAIR Disposition: HOME/ ROUTINE Instructions: Heart Healthy Diet, Atrial Fibrillation (DC), Low Salt Diet, Apixaban, Diltiazem, Hydrochlorothiazide, Metoprolol, Simvastatin, Atrial Flutter (DC) Additional Instructions: Please follow up with Dr. Valentin office in 5 days Please follow up with Dr. Ogden office in 1 week- call and make appointment Continue medications as per med . rec. Activity as tolerated. Referrals: Terry Valentin MD [Staff Provider] - 07/14/17 1:00 pm (Appointment made for you , spoke with Jaleesa) Oscar Ogden MD [Staff Provider] - 1 Week
== END 2017-07-07 15:57 | disposition home or self-care (01) | DRG 310 ==
LOC: C.ER 12:24 → C.9E 13:51 → C.6T 14:28 → OBSVTOIN 07-03 15:55
PROVIDERS: ADMIT Internal Medicine; ATTEND Internal Medicine
DX: I48.92 Unspecified atrial flutter (principal); I48.91 Unspecified atrial fibrillation; I10 Essential (primary) hypertension; I87.2 Venous insufficiency (chronic) (peripheral); Z96.641 Presence of right artificial hip joint; Z98.84 Bariatric surgery status; Z87.891 Personal history of nicotine dependence; J44.9 Chronic obstructive pulmonary disease, unspecified; G47.30 Sleep apnea, unspecified; E87.70 Fluid overload, unspecified; R07.9 Chest pain, unspecified

== ENCOUNTER 2018-04-21 10:13 | Outpatient (CLI) | payer MEDICARE | END 2018-04-21 10:14 | disposition home or self-care (01) | LOC: C.CARD 10:13 ==